=== PATIENT | female | born 1995 | race Caucasian/White ===

== ENCOUNTER 2021-02-28 12:12 | Emergency (ER) | payer BC, SELFPAY ==
--- NOTE | ~2021-02-28 | XR_ITS ---
EXAMINATION: XR abdomen/kub 1V EXAM DATE: 02/28/2021 12:51 INDICATION: Lt sided FLANK PAIN x 1 wk; no hx of kidney stones. TECHNIQUE: Frontal projection(s) of the abdomen for interpretation. Comparison is made to prior exami nation from 2009. FINDINGS: There is expected amount of colonic stool and gas. No small bowel dilation, nonobstructiv e bowel gas pattern. There are no suspicious calcifications identified. There is no organomegaly suspected. The bones are unremarkable. IMPRESSION: Unremarkable abdomen x-ray exam. Reviewed, dictated and finalized at location B.
--- NOTE | 2021-02-28 12:19 | ED.GENADULT ---
HPI - General Adult General Chief complaint: Abdominal Pain Stated complaint: lt flank pain Time Seen by Provider: 02/28/21 12:20 Source: patient and RN notes reviewed Mode of arrival: ambulatory Limitations: no limitations History of Present Illness HPI narrative: 26-year-old female presents with complaints of left upper abdomen pain and nausea for the past 7 days. ?Denise reports intermittent sharp and dull pain with nausea and diarrhea. ?Gas-X, Advil, and Ibuprofen without relief. ?No significant pelvic pain. ?No vaginal discharge. ?No concerns for STDs, not sexual active. ?No fever or chills. ?No nausea and diarrhea without vomiting. ?No flank pain. Exacerbating factors consist of deep breathing. ?Denies dysuria, hematuria, and vaginal bleeding. ?No blood in stool or constipation. ?Last BM 1 hour prior to arrival, soft. ?Urine output within normal limits. ?LMP 02/24/21. ?Remains active. ?The patient reports she was diagnosed with COVID-05 July 2020. ?The patient reports she received the [employer] COVID-19 vaccine. ?The patient reports she is not waiting for the results of a COVID-19 lab test. ?The patient reports she does not have weakness, fatigue, or myalgia. ?The patient reports she does not have a new or worsening cough or shortness of breath. The patient reports she does not have any rhinorrhea, congestion, loss of taste, sore throat, and diarrhea. Denies recent traveling. Denies concerns for COVID-19 or exposures. At this time, the patient is not suspected of having COVID-19. Some parts of this dictation were generated by voice recognition software and may contain typographical and/or grammatical inaccuracies. Related Data Home Medications Medication Instructions Recorded Confirmed ferrous sulfate [FeroSul] 325 mg PO DAILY 02/28/21 02/28/21 Allergies Allergy/AdvReac Type Severity Reaction Status Date / Time No Known Allergies Allergy Verified 02/28/21 12:20 Review of Systems Review of Systems: Narrative: CONSTITUTIONAL: Denies fever, chills, sweats. EYES: Denies visual changes, redness, discharge. ENT: Denies rhinorrhea, congestion, sore throat, otalgia. CARDIOVASCULAR: Denies chest pain, palpitations, edema. RESPIRATORY: Denies dyspnea, wheezing, cough. GASTROINTESTINAL: Complaints of left upper abdomen pain, diarrhea, nausea, and decreased appetite. Denies vomiting. GENITOURINARY: Denies dysuria, hematuria, abnormal discharge. SKIN: Denies rash or itching. MUSCULOSKELETAL: Denies acute back pain, joint pain, or myalgia. NEUROLOGIC: Denies numbness or focal weakness. PSYCHIATRIC: Denies anxiety or depression. All systems reviewed & are unremarkable except as noted in HPI and below. [facility] Past Medical History Medical History (Updated 03/04/21 @ 23:44 by BENITEZ Jiang) Asthma childhood COVID-19 06/2020 Obese Surgical History Surgical History (Updated 02/28/21 @ 13:39 by BENITEZ Jiang) No significant past surgical history Family History Family History (Updated 02/28/21 @ 13:38 by BENITEZ Jiang) Father Alive and well Mother Alive and well Social History Social History (Updated 02/28/21 @ 13:38 by BENITEZ Jiang) Smoking status: Never smoker Tobacco type: cigarettes Second hand tobacco smoke exposure: No Alcohol intake: never Substance use: former Substance use type: marijuana Last use: 1 month ago Living arrangements: with family Occupation/Education: student Gender identity (if verbalized by the patient): Female Spiritual care concerns: No Comments At time of signature, agree with the nurse past medical, surgical, social, and family history. There is no relevant family history pertinent to the presenting complaint. Exam Narrative: Exam Narrative: GENERAL: This is a well-nourished, well-developed patient, in no apparent distress. Talks in full sentences without deficits and ambulates with steady gait wi
[2021-02-28 12:20] VITALS: BP 138/89; PULSE 81; RESP 16; TEMP 36.3; O2SAT 100
== END 2021-02-28 13:36 | disposition home or self-care (01) ==
PROVIDERS: Emergency Provider Nurse Practitioner Family; PCP Internal Medicine
DX: R10.12 Left upper quadrant pain (principal); Z86.16 Personal history of COVID-19; E66.9 Obesity, unspecified; Z68.43 Body mass index [BMI] 50.0-59.9, adult
CPT/HCPCS: 74018; 81003; 87086; 87088; 99203; G0463